=== PATIENT | female | born 1970 | race Caucasian/White ===

== ENCOUNTER 2021-04-19 22:16 | Inpatient (IN) | payer OTHER, MEDICAID ==
[~2021-04-19] VITALS: Ht 162.6 cm; Wt 190.5 kg
[2021-04-19 22:17] VITALS: BP 136/78
[2021-04-19] MEDS ORDERED: HYDROCODON-ACE1 EAC7 PO (22:25)
[2021-04-19] MEDS ORDERED: XANAX1 MG PO (22:25)
[2021-04-19] MEDS ORDERED: LISINOPRIL20 MG PO (22:26)
[2021-04-19] MEDS ORDERED: VRAYLAR4.5 MG PO (22:26)
[2021-04-19] MEDS ORDERED: TRILEPTAL300 MG PO (22:26)
[2021-04-19] MEDS ORDERED: TOPAMAX50 MG PO (22:26)
[2021-04-19 23:20] LABS: ABSOLUTE BASOPHILS 0.1 thou/uL (0.0-0.2); ABSOLUTE EOSINOPHILS 0.3 thou/uL (0.0-0.7); ABSOLUTE LYMPHOCYTES 3.7 thou/uL (0.8-5.3); ABSOLUTE MONOCYTES 0.7 thou/uL (0.0-1.2); ABSOLUTE NEUTROPHILS 8.1 thou/uL (1.6-8.1); BASOPHILS 1.2 %; HEMATOCRIT 41.2 % (37.0-47.0); HEMOGLOBIN 13.8 gm/dL (12.0-15.0); LYMPHOCYTES 28.7 %; MCH 29.4 pg (26.0-34.0); MCHC 33.6 g/dL (28.0-37.0); MCV 87.5 fL (80.0-100.0); MONOCYTES 5.8 %; MPV 7.5 fl. (7.2-11.1); NUCLEATED RBCS 0 /100WBC; PLATELET COUNT* 256 thou/uL (150-400); POLYS 62.3 %; RBC 4.71 mil/uL (4.20-5.00); RDW-CV 13.9 % (10.5-14.5); WBC 12.9 thou/uL (4.0-11.0)
[2021-04-19 23:31] LABS: CALCIUM 8.7 mg/dL (8.5-10.1); CREATININE 0.9 mg/dL (0.6-1.3)
[2021-04-19 23:42] LABS: ALBUMIN 3.3 g/dL (3.4-5.0); MAGNESIUM 1.5 mg/dL (1.8-2.4); TOTAL BILIRUBIN 0.4 mg/dL (<0.1-1.0)
[2021-04-20 03:02] VITALS: BP 158/81
[2021-04-20 04:00] VITALS: BP 155/65
[2021-04-20 09:30] VITALS: BP 161/63
--- NOTE | 2021-04-20 09:48 | EKG ---
[place] [address] ELECTROCARDIOGRAM REPORT Name: HEMALATHA SEGOVIA Room: [address]#: [id number] Admission: 04/20/21 Attend Phys: Alexia De Oliveira MD Discharge: Date of : 70 Date of Service: 04/19/212220 Report #: [id number] THIS REPORT FOR: //name// [facility] ED Test Date: 2021-04-19 Test Time: 22:21:27 Pat Name: HEMALATHA SEGOVIA Department: Room: [facility] Gender: F Rn Field: [place] : 1970 Requested By: Stephania Bradshaw Order Number: [id number] MD: Dwain Mir Measurements Intervals Alba Rate: 100 P: 18 OR: 154 QRS: -35 QRSD: 106 T: 50 QT: 371 QTc: 479 Interpretive Statements Sinus tachycardia Left axis deviation RSR' in V1 or V2, probably normal variant No previous ECG available for comparison Electronically Signed On 04-20-2021 9:48:44 CDT by Dwain Mir [email or web address] <ELECTRONICALLY SIGNED> By: Dwain Mir MD, [facility] 04/20/2148 20 20 Dwain Mir MD, [facility] /EPI
[2021-04-20 12:06] VITALS: BP 137/56
[2021-04-20] MEDS ORDERED: TOUJEO SOL300 UNIT/1 SUBQ (15:13)
[2021-04-20] MEDS ORDERED: DIAZEPAM 10 MG10 M1 PO (15:14)
[2021-04-20] MEDS ORDERED: vitamin d (15:16)
[2021-04-20] MEDS ORDERED: KRATOM (15:26)
[2021-04-20] MEDS ORDERED: CBD GUMMY (15:27)
[2021-04-20 17:31] VITALS: BP 142/66
[2021-04-20 20:45] VITALS: BP 153/63
[2021-04-21] VITALS: BP 126/46
[2021-04-21 02:03] LABS: URINE BILIRUBIN NEGATIVE (Negative); URINE BLOOD NEGATIVE (Negative); URINE CLARITY CLEAR; URINE COLOR YELLOW; URINE GLUCOSE-RANDOM 2+ (Negative); URINE KETONES 1+ (Negative); URINE LEUKOCYTES-REFLEX NEGATIVE (Negative); URINE NITRITE-REFLEX NEGATIVE (Negative); URINE PROTEIN NEGATIVE (Negative); URINE SPECIFIC GRAVITY 1.025 (1.005-1.030); URINE UROBILINOGEN 0.2 E.U./dl (0.2-1.0)
[2021-04-21 04:31] VITALS: BP 127/68
[2021-04-21 08:00] VITALS: BP 158/54
[2021-04-21 12:37] VITALS: BP 134/53
[2021-04-21 13:12] LABS: ABSOLUTE BASOPHILS 0.1 thou/uL (0.0-0.2); ABSOLUTE EOSINOPHILS 0.3 thou/uL (0.0-0.7); ABSOLUTE LYMPHOCYTES 2.7 thou/uL (0.8-5.3); ABSOLUTE MONOCYTES 0.8 thou/uL (0.0-1.2); ABSOLUTE NEUTROPHILS 6.9 thou/uL (1.6-8.1); BASOPHILS 0.8 %; EOSINOPHILS 2.5 %; LYMPHOCYTES 25.2 %; MCH 29.5 pg (26.0-34.0); MCHC 33.3 g/dL (28.0-37.0); MCV 88.6 fL (80.0-100.0); MONOCYTES 7.1 %; MPV 7.5 fl. (7.2-11.1); NUCLEATED RBCS 0 /100WBC; PLATELET COUNT* 241 thou/uL (150-400); POLYS 64.4 %; RBC 4.06 mil/uL (4.20-5.00); RDW-CV 14.1 % (10.5-14.5); WBC 10.7 thou/uL (4.0-11.0)
[2021-04-21 13:19] LABS: CALCIUM 8.4 mg/dL (8.5-10.1); POTASSIUM 3.3 mmol/L (3.5-5.1)
[2021-04-21 14:13] LABS: ESR (SEDRATE) 64 mm/hr (0-30)
[2021-04-21 18:26] VITALS: BP 124/53
[2021-04-21 20:15] VITALS: BP 122/41
[2021-04-22 01:47] VITALS: BP 109/52
[2021-04-22 03:57] LABS: ALBUMIN 2.8 g/dL (3.4-5.0); CALCIUM 8.4 mg/dL (8.5-10.1); CREATININE 0.9 mg/dL (0.6-1.3); MAGNESIUM 1.8 mg/dL (1.8-2.4); POTASSIUM 3.6 mmol/L (3.5-5.1); TOTAL BILIRUBIN 0.2 mg/dL (<0.1-1.0); TOTAL PROTEIN 6.6 g/dL (6.4-8.2)
[2021-04-22 04:04] LABS: MCH 29.7 pg (26.0-34.0); MCHC 33.3 g/dL (28.0-37.0); MCV 89.2 fL (80.0-100.0); MPV 7.6 fl. (7.2-11.1); RBC 4.04 mil/uL (4.20-5.00); RDW-CV 14.3 % (10.5-14.5); WBC 10.1 thou/uL (4.0-11.0)
[2021-04-22 05:11] VITALS: BP 96/56
[2021-04-22 05:36] LABS: GLYCOHEMOGLOBIN (HGB A1C) 10.1 % (4.8-5.6)
[2021-04-22 08:48] VITALS: BP 124/45
[2021-04-22 12:00] VITALS: BP 117/45
[2021-04-22 16:00] VITALS: BP 112/37
[2021-04-22 20:14] VITALS: BP 113/45
[2021-04-23 01:45] VITALS: BP 120/55
[2021-04-23 06:59] VITALS: BP 138/56
[2021-04-23 08:13] VITALS: BP 132/48
[2021-04-23 12:00] VITALS: BP 136/51
[2021-04-23 16:00] VITALS: BP 136/65
[2021-04-23 20:32] VITALS: BP 110/75
[2021-04-24] VITALS (9 sets, daily range): BP systolic 120–145; BP diastolic 54–72
[2021-04-24 07:51] LABS: HEMATOCRIT 36.5 % (37.0-47.0); HEMOGLOBIN 11.9 gm/dL (12.0-15.0); MCH 29.1 pg (26.0-34.0); MCHC 32.7 g/dL (28.0-37.0); MCV 89.1 fL (80.0-100.0); MPV 7.6 fl. (7.2-11.1); RBC 4.09 mil/uL (4.20-5.00); RDW-CV 13.4 % (10.5-14.5); WBC 11.1 thou/uL (4.0-11.0)
[2021-04-24 08:12] LABS: ALBUMIN 2.7 g/dL (3.4-5.0); CALCIUM 8.7 mg/dL (8.5-10.1); CREATININE 0.9 mg/dL (0.6-1.3); POTASSIUM 4.3 mmol/L (3.5-5.1); TOTAL BILIRUBIN 0.2 mg/dL (<0.1-1.0)
[2021-04-25 04:22] VITALS: BP 120/50
[2021-04-25 08:07] VITALS: BP 144/58
[2021-04-25 11:43] VITALS: BP 145/68
[2021-04-25 17:48] VITALS: BP 116/59
[2021-04-26 08:40] VITALS: BP 119/54
[2021-04-26 08:51] VITALS: BP 119/54
[2021-04-26] MEDS ORDERED: MUCUS RLF DM E1 EACH PO (09:04)
[2021-04-26] MEDS ORDERED: HYDROCODONE-CH115 ML PO (09:04)
[2021-04-26] MEDS ORDERED: HUMALOG100 UNIT/1 SUBQ (09:04)
[2021-04-26] MEDS ORDERED: DIAZEPAM 10 MG10 M1 PO (09:04)
[2021-04-26] MEDS ORDERED: XANAX1 MG PO (09:04)
[2021-04-26] MEDS ORDERED: HYDROCODON-ACE1 EAC7 PO (09:04)
[2021-04-26] MEDS ORDERED: LANTUS SUBQ (09:04)
[2021-04-26] MEDS ORDERED: IPRAT-ALBUT 0.5-3 ML INH (09:04)
[2021-04-26] MEDS ORDERED: GLUCOTROL XL2.5 MG PO (09:04)
[2021-04-26] MEDS ORDERED: TESSALON PERLE100 MG PO (09:04)
[2021-04-26] MEDS ORDERED: LEVOFLOXACIN750 MG PO (09:04)
[2021-04-26] MEDS ORDERED: PREDNISONE 10 M10 M1 PO (09:05)
== END 2021-04-26 14:30 | DRG 177 ==
LOC: M.ERS 22:16 → M.TBA-ER 04-20 00:33 → M.2W 04-20 00:33 → M.3W 04-25 17:55
PROVIDERS: Emergency Medicine; Internal Medicine; ADMIT Family Medicine; ATTEND Family Medicine
PROC: 5A09357 Assistance with Respiratory Ventilation, Less than 24 Consecutive Hours, Continuous Positive Airway Pressure (ICD-10-PCS; principal; 2021-04-21)
PROC: 5A09357 Assistance with Respiratory Ventilation, Less than 24 Consecutive Hours, Continuous Positive Airway Pressure (ICD-10-PCS; 2021-04-22)
PROC: 5A09357 Assistance with Respiratory Ventilation, Less than 24 Consecutive Hours, Continuous Positive Airway Pressure (ICD-10-PCS; 2021-04-23)
PROC: 5A09357 Assistance with Respiratory Ventilation, Less than 24 Consecutive Hours, Continuous Positive Airway Pressure (ICD-10-PCS; 2021-04-24)
PROC: 5A09357 Assistance with Respiratory Ventilation, Less than 24 Consecutive Hours, Continuous Positive Airway Pressure (ICD-10-PCS; 2021-04-25)
DX: J15.6 Pneumonia due to other Gram-negative bacteria (principal); J96.01 Acute respiratory failure with hypoxia; J44.1 Chronic obstructive pulmonary disease with (acute) exacerbation; Z68.45 Body mass index [BMI] 70 or greater, adult; J44.0 Chronic obstructive pulmonary disease with (acute) lower respiratory infection; M19.90 Unspecified osteoarthritis, unspecified site; E66.01 Morbid (severe) obesity due to excess calories; E11.65 Type 2 diabetes mellitus with hyperglycemia; E83.42 Hypomagnesemia; T38.0X5A Adverse effect of glucocorticoids and synthetic analogues, initial encounter; Z20.822 Contact with and (suspected) exposure to COVID-19; Z85.42 Personal history of malignant neoplasm of other parts of uterus; Z88.6 Allergy status to analgesic agent; Z88.0 Allergy status to penicillin; Z82.49 Family history of ischemic heart disease and other diseases of the circulatory system; Y92.89 Other specified places as the place of occurrence of the external cause; Z79.899 Other long term (current) drug therapy